=== PATIENT | female | born 1975 | race Asian ===

== ENCOUNTER 2017-11-30 17:47 | Emergency (ER) | payer OTHER ==
[~2017-11-30] VITALS: Ht 160 cm; Wt 65.8 kg
[2017-11-30 18:14] VITALS: BP 125/81
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
[2017-11-30] MEDS ORDERED: Ketorolac 60mg Inj IM ONE (19:45)
--- NOTE | 2017-11-30 19:57 | Diagnostic Imaging Report ---
EXAM: CT Cervical Spine Without Intravenous Contrast CLINICAL HISTORY: PAIN TECHNIQUE: Axial computed tomography images of the cervical spine without intravenous contrast. CTDI is 0.25, 13.06 mGy and DLP is 260 mGy-cm. One or more of the following dose reduction techniques were used: automated exposure control, adjustment of the mA and/or kV according to patient size, use of iterative reconstruction technique. COMPARISON: No relevant prior studies available. FINDINGS: Vertebrae: No acute fracture or malalignment. Straightening of the normal cervical lordosis. Discs/spinal canal/neural foramina: Mild disc height loss and small osteophyte at C5-C6 and C6-C7. No significant osseous spinal or foraminal stenosis. Soft tissues: Unremarkable. Lung apices: Unremarkable as visualized. IMPRESSION: No acute fracture or malalignment.
[2017-11-30] MEDS ORDERED: LIDODERM700 M1 TOPIC (20:04)
[2017-11-30] MEDS ORDERED: ROBAXIN500 MG PO (20:04)
[2017-11-30] MEDS ORDERED: TYLENOL EXTRA500 MG ORAL (20:04)
[2017-11-30 20:18] VITALS: BP 125/81
== END 2017-11-30 20:18 | disposition home or self-care (01) ==
LOC: EMR 18:49
DX: M62.830 Muscle spasm of back (principal); S16.1XXA Strain of muscle, fascia and tendon at neck level, initial encounter; X58.XXXA Exposure to other specified factors, initial encounter; Y92.9 Unspecified place or not applicable; V43.52XA Car driver injured in collision with other type car in traffic accident, initial encounter; Y92.89 Other specified places as the place of occurrence of the external cause; M79.602 Pain in left arm
CPT/HCPCS: 72125; 96372; 99284